=== PATIENT | female | born 1995 | race Caucasian/White ===

== ENCOUNTER → 2019-02-10 | Outpatient (CLI) | payer BC | LOC: NUC 08:00 | DX: R19.7 Diarrhea, unspecified (principal); R10.11 Right upper quadrant pain ==

== ENCOUNTER 2019-03-16 12:00 | Day surgery (SDC) | payer BC ==
[~2019-03-16] VITALS: Ht 160 cm; Wt 118.5 kg
--- NOTE | ~2019-03-16 | O ---
[facility] [place] [address] OPERATIVE REPORT Name: ALBERTO GUZMAN Room #: 150-3 [facility]#: [id number] Admission: 03/16/19 Attend Phys: Ronny Chung MD Discharge: Date of : 89 Report #: [id number] THIS REPORT FOR: //name// CC: Timi Chung DATE OF SERVICE: 03/16/2019 PREOPERATIVE DIAGNOSIS: Biliary dyskinesia. POSTOPERATIVE DIAGNOSIS: Biliary dyskinesia. OPERATIVE PROCEDURE DONE: Laparoscopic cholecystectomy. OPERATING SURGEON: Ronny Chung MD INDICATIONS FOR PROCEDURE: The patient is a 23-year-old female who presented with features of recurrent episodes of right upper quadrant pain. Clinical exam and ultrasound scan done showed ejection fraction of 25% on HIDA scan. The patient was advised laparoscopic cholecystectomy. DESCRIPTION OF PROCEDURE: After explaining to the patient in detail and informed consent was obtained, the patient was identified in the preoperative holding area. The patient was transferred to the operating room and was placed in supine position. Subsequently, compressive devices were placed for DVT prophylaxis. Preoperative antibiotics were given. After induction of anesthesia, the abdomen was prepped and draped in a sterile fashion. Through a right upper quadrant 1 cm incision and using Optiview technique, peritoneal cavity was entered and pneumoperitoneum was created. Thereafter, under direct vision, another 5 mm trocar was placed and through a supraumbilical incision, another 5 mm trocar was placed in the epigastrium and one in the right lateral subcostal region. On inspection, the gallbladder appeared normal. The gallbladder was retracted and the peritoneal reflection along the neck of the gallbladder was gently dissected off. Cystic duct was identified and was isolated from the surrounding structures. Cystic artery was identified and was isolated from the surrounding structures. Cystic duct was then double clipped proximally and single clipped applied distally and was then divided. Cystic artery also was then divided in a similar fashion. The gallbladder was gently dissected off the liver bed using hook electrocautery. Absolute hemostasis was achieved, thorough saline irrigation was given. The gallbladder was retrieved using an EndoCatch through the lateral most incision. Incisions were then closed with 4-0 Monocryl. Dermabond was applied. The patient was stable at the end of the procedure. The patient was awoken from anesthesia and was transferred to the recovery room in stable condition. [address] [address] OPERATIVE REPORT Name: MEGANALBERTO Room #: 150-3 [facility]..#: [id number] Admission: 03/16/19 Attend Phys: Ronny Chung MD Discharge: Date of : [birth year] Report #: [id number] ESTIMATED BLOOD LOSS: Approximately 10 mL. CONDITION OF THE PATIENT: Stable. FLUIDS GIVEN: Per anesthesia notes. SPECIMEN SENT: Gallbladder. COMPLICATIONS: None. ANESTHESIA: General anesthesia. By: [id number] Ronny Chung MD /nt
[~2019-03-16 12:00] MED LIST: ALLEGRA ALLERG180 MG PO; ORILISSA200 MG PO; VENTOLIN HFA 1818 GM INH
[2019-03-16 13:04] VITALS: BP 107/71
[2019-03-16 15:19] VITALS: BP 107/71
--- NOTE | 2019-03-18 13:07 | PATH ---
[facility] [address] [place] [address] PATHOLOGY RPT PROCEDURE Name: ALBERTO GUZMAN Room #: DEP [facility].#: [id number] Admission: 03/16/19 Date of : [birth year] Discharge: 03/16/19 Report #: [id number] Path Case #: [id number] [facility] Accession Number: [id number] . 01 Material submitted: . gallbladder - GALLBLADDER . 01 Clinical history: . Cholelithiasis . 02 Diagnosis: Gallbladder, cholecystectomy: - Chronic cholecystitis. - No gallstones present. . (SKM:mml; 03/18/2019) [facility]/03/18/2019 . 02 Electronically signed: . Ronny Vaz MD, Pathologist NPI- [id number] . 01 Gross description: . Received in formalin labeled "Alberto Guzman, Gallbladder," is an intact, turgid gallbladder measuring 6.4 x 2.6 x 2.2 cm in greatest dimensions. The serosal surface is smooth and green-osman in appearance. Opening the specimen reveals a dark green mucosa measuring 0.1 cm in thickness, with an average gallbladder wall thickness of 0.1 cm. A single dark yellow-green possible polyp is noted, measuring 0.1 cm in maximum dimension and extending to within 1.4 cm of the infundibulum. Calculi are not present within the specimen or specimen container. Concrete Spreader sections of the infundibulum, body and fundus are submitted in cassette A1, to include the possible polyp. (DAC; 03/17/2019) XDC/XDC . 02 Pathologist provided ICD-10: K81.1 . 02 CPT . 128078 Specimen Comment: A courtesy copy of this report has been sent to Specimen Comment: [phone], . Specimen Comment: Report sent to and Performed at: [address] [facility] [id number] [place] [address] PATHOLOGY RPT PROCEDURE Name: ALBERTO GUZMAN Room #: DEP [facility] Ariane#: [id number] Admission: 03/16/19 Date of : [birth year] Discharge: 03/16/19 Report #: [id number] Path Case #: [id number] MD Arvin To MD Phone: [phone] Performed at: [address] [id number] MD Maame Marinelli MD Phone: [phone]
== END 2019-03-16 16:45 | disposition home or self-care (01) ==
LOC: OR 12:00 → TBA 15:02 → OR 16:45
DX: K81.1 Chronic cholecystitis (principal); J45.909 Unspecified asthma, uncomplicated; Z98.890 Other specified postprocedural states; Z88.0 Allergy status to penicillin; Z79.899 Other long term (current) drug therapy
CPT/HCPCS: 50010; 50101; 62110; 62900; 70005

== ENCOUNTER → 2019-10-10 | Outpatient (CLI) | payer OTHER | LOC: CAT 15:29 | DX: I51.7 Cardiomegaly (principal); Z90.49 Acquired absence of other specified parts of digestive tract ==